=== PATIENT | female | born 2005 | race Hispanic/Latino ===

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

== ENCOUNTER 2024-03-29 14:19 | Outpatient (CLI) | payer OTHER, SELFPAY ==
[2024-03-29 14:47] LABS: BHCG - Serum POSITIVE (NEGATIVE); Pregs Control Bar Appear? YES (CONTROL BAR)
== END 2024-03-29 14:20 | disposition home or self-care (01) ==
LOC: NAV ER/OP 14:19
PROVIDERS: ATTEND Family Medicine
DX: Z00.00 Encounter for general adult medical examination without abnormal findings (principal)
CPT/HCPCS: 36415; 84703